=== PATIENT | male | born 1985 | race Caucasian/White ===

== ENCOUNTER 2016-12-01 09:57 | Emergency (ER) | payer OTHER ==
[2016-12-01 10:09] VITALS: BP 127/76
--- NOTE | 2016-12-01 10:19 | ED Physician Documentation ---
Eye Problem - HISTORIAN Historian: patient - HPI Stated Complaint: Bilat eye redness Chief Complaint: Eye Problems Additional Information: pink eye both eyes - stuck stuck shut this am Onset: days ago (3) Associated symptoms: pain, burining, matting, sensitivity to light Location: left eye Severity: moderate Apparent Injury: no Context: denies: foreign body, direct trauma, projectile injury - ROS CONST: no problems MS/SKIN/LYMPH: denies: weakness CVS/RESP: none GI/: denies: problems urinating, nausea, vomiting NEURO: denies: headache - PAST HX Past History: none Allergies/Adverse Reactions: Allergies Allergy/AdvReac Type Severity Reaction Status Date / Time No Known Allergies Allergy Verified 12/01/16 10:09 Home Medications: Ambulatory Orders Medication Instructions Recorded Sulfacetamide Sodium 15 ml OP [id number] #1 drops 12/01/16 - SOCIAL HX Smoking History: non-smoker Alcohol Use: occasionally Drug Use: none - FAMILY HX Family History: no significant history - VITAL SIGNS Vital Signs: Vital Signs Temp Pulse Resp BP Pulse Ox 98.6 F 63 18 127/76 98 12/01/16 10:05 12/01/16 10:05 12/01/16 10:05 12/01/16 10:05 12/01/16 10:05 - REVIEWED ASSESSMENTS Nursing Assessment Reviewed: Yes Vitals Reviewed: Yes Eye Problem Physical Exam - Physical Exam General Appearance: mild distress Visual Acuity: no globe trauma Eyelids: nml inspection, erythema (L), erythema (R) Conjunctiva and Sclera: injected (R), injected (L), exudate (R), exudate (L) EOM: intact Pupils: equal Anterior Chambers: nml inspection Head/ENT: nml inspection Skin: nml color, warm, skin intact. No: ecchymosis, cyanosis Neck/Back: nml inspection Respiratory: no resp distress, breath sounds normal CVS: reg rate & rhythm, heart sounds normal Abdomen: non-tender Neuro/Psych: oriented x3, mood/affect nml Discharge Clincal Impression: acute conjunctivitis-pink eye Prescriptions: Sulfacetamide Sodium 15 ml OP [id number] #1 drops Referrals: Primary Doctor,No [Primary Care Provider] - 2 Days Home Medications: Ambulatory Orders Sulfacetamide Sodium 15 ml OP [id number] #1 drops 12/01/16 Decision to Admit: NO Decision Time: 10:22
== END 2016-12-01 10:19 ==
LOC: ED 09:57
DX: H10.30 Unspecified acute conjunctivitis, unspecified eye (principal)
CPT/HCPCS: 99283